=== PATIENT | male | born 1935 | race Caucasian/White ===

== ENCOUNTER 2018-06-22 14:58 | Emergency (ER) | payer MEDICARE ==
[2018-06-22] MEDS: predniSOLONE (3 MG/ML) CUP PO (17:24)
[2018-06-22] MEDS: LIDOCAINE/MYLANTA 40 ML BTL PO (17:25)
[2018-06-22] MEDS: ALBUTEROL 0.083% (NEB) 2.5 MG/3 ML AMP HHN (17:25)
== END 2018-06-22 18:56 | disposition home or self-care (01) ==
LOC: FTE 14:58
DX: J02.9 Acute pharyngitis, unspecified (principal); F17.210 Nicotine dependence, cigarettes, uncomplicated
CPT/HCPCS: 94664; 99283-25